=== PATIENT | female | born 2000 | race Caucasian/White ===

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

== ENCOUNTER → 2020-02-19 | Outpatient (CLI) | payer MEDICAID, SELFPAY ==
[2020-02-19 18:28] LABS: Thyroid Stim Hormone (TSH) 2.47 uIU/mL (0.358-3.74)
== END | disposition home or self-care (01) ==
PROVIDERS: Referring Provider Obstetrics & Gynecology; Visit Provider Obstetrics & Gynecology
DX: N92.6 Irregular menstruation, unspecified (principal)
CPT/HCPCS: 84443

== ENCOUNTER → 2020-07-18 13:41 | Outpatient (CLI) | payer MEDICAID, SELFPAY ==
[2020-07-18 14:43] LABS: Hematocrit 40.6 % (37-47); Hemoglobin 13.4 g/dL (12.0-15.0)
[2020-07-18 15:18] LABS: Hemoglobin A1c 5.2 % (3.8-5.6)
[2020-07-18 15:38] LABS: HIV - WCH Non-Reactive (Nonreactive); Hepatitis B Surface Antigen Non-Reactive (Nonreactive); Hepatitis C Antibody Non-Reactive (Nonreactive)
[2020-07-24 04:30] LABS: Rapid Plasmin Reagin (RPR) NONREACTIVE (NONREACTIVE)
== END ==
PROVIDERS: Visit Provider Student in an Organized Health Care Education/Training Program
DX: Z11.3 Encounter for screening for infections with a predominantly sexual mode of transmission (principal)
CPT/HCPCS: 36415; 83036; 85014; 85018; 86592; 86703; 86803; 87340

== ENCOUNTER 2022-10-26 09:39 | Emergency (ER) | payer OTHER, SELFPAY ==
[2022-10-26 09:39] VITALS: BP 113/86; PULSE 85; RESP 16; TEMP 36.6; O2SAT 99; BMI 21.9
--- NOTE | 2022-10-26 09:56 | EKG12_ITS ---
Test Reason : CP Blood Pressure : / mmHG Vent. Rate : 073 BPM Atrial Rate : 073 BPM P-R Int : 178 ms QRS Dur : 080 ms QT Int : 408 ms P-R-T Axes : 049 057 027 degrees QTc Int : 449 ms Normal sinus rhythm Normal ECG Confirmed by MOIZ LEOS, AIDAN ([id number]), health editor JAELYN CURRY ([id number]) on 10/27/2022 10:48:02 AM Referred By: LI Confirmed By:AIDAN ROCKWELL MD
--- NOTE | 2022-10-26 09:57 | EX.ED.DYSGE1 ---
HPI History of Present Illness Chief Complaint: Dizziness Detail of Chief Complaint: Dizziness and near syncope Informant: patient Narrative Narrative: Patient presents the emergency department complaint of a episode this morning where she felt dizzy and felt she might pass out. Patient states that she was in the operating room standing for about an hour and a half. She was observing a hysterectomy. Patient states she normally does not get bothered by the site of blood. Patient states she has had intermittent episodes like this before but she states that her vision started to disappear and she lost hearing. Patient felt lightheaded and felt she was in a pass out. Patient was able to take off her surgical gown and gloves and sit down. There was no loss of consciousness. She denies chest pain. She denies shortness of breath. She denies recent illness. Patient states that she has history of irregular periods and was 2 weeks late on her last period but took a home test that was negative. She denies abdominal pain. She denies chest pain or palpitations. Prior similar symptoms: Yes [facility] Medical History (Updated 10/26/22 @ 10:[address] Ryland Bloom, ) Near syncope Home Medications biotin 1 mg capsule 1 mg PO DAILY 02/20/19 [History Last Taken Unknown] ondansetron 4 mg disintegrating tablet 4 mg PO Q6H PRN PRN Nausea #20 tabs 02/20/19 [Rx Last Taken Unknown] Allergy/AdvReac Type Severity Reaction Status Date / Time No Known Allergies Allergy Verified 10/26/22 09:42 Social History Smoking Status: Current every day smoker tobacco type: cigarettes ROS ROS ED ROS Narrative Dizziness, near syncope Review of Systems ROS Unobtainable: other Constitutional Constitutional ED: Reports lethargy; Denies chills, fever(s), sweats or weight loss Eyes Eyes: Denies blurry vision, change in vision or diplopia ENT ENT ED: Reports other Details: Change in vision, hearing loss ; Denies rhinorrhea or sore throat Cardiovascular Cardiovascular: Denies chest pain, orthopnea or racing heartbeat Respiratory/Chest Respiratory/Chest: Denies cough, dyspnea, dyspnea on exertion, orthopnea or sputum Gastrointestinal Gastrointestinal: Denies abdominal pain, diarrhea, nausea or vomiting Genitourinary Genitourinary ED: Denies dysuria, hematuria or urinary frequency Musculoskeletal Musculoskeletal: Denies arthralgias, back pain, myalgias or neck pain Integumentary Denies abscess, Abrasions or rash Neurologic Neurologic: Denies headache(s) or weakness Psychiatric Psychiatric: Denies anxiety, depression or suicidal thoughts Endocrine Endocrinology: Denies polydipsia, polyphagia or polyuria Hematologic/Lymphatic Hematologic/Lymphatic: Denies easy bleeding, easy bruising or lymphadenopathy Allergic/Immunologic Allergic/Immunologic ED: Denies mouth swelling, tongue swelling or urticaria EXAM Physical Exam Const Vital Signs: 10/26/22 09:39 10/26/22 10:47 10/26/22 10:52 Temperature 98 F Temperature Source Temporal Pulse Rate 85 Pulse Rate [Lying] 65 Pulse Rate [Sitting (for 1 minute prior to obtaining)] 75 Pulse Rate [Standing (for 1 minute prior to obtaining)] 82 Respiratory Rate 16 Respiratory Effort Normal Non-Labored Respiratory Pattern Normal Blood Pressure 113/86 H Blood Pressure [Lying] 109/65 Blood Pressure [Sitting (for 1 minute prior to obtaining)] 104/77 Blood Pressure [Standing (for 1 minute prior to obtaining)] 103/68 Blood Pressure Mean 95 Blood Pressure Mean [Lying] 79 Blood Pressure Mean [Sitting (for 1 minute prior to obtaining)] 86 Blood Pressure Mean [Standing (for 1 minute prior to obtaining)] 79 Pulse Ox 99 Oxygen Delivery Method Room Air Positive well nourished and well developed General Appearance ED: well developed and NAD HEENT Reports TM's clear and moist mucous membranes normocephalic and atraumatic; Negative for trauma or tenderness Tympanic Membrane ED: Yes TM's clear Eyes PERRL and EOMs intact bilaterally General Eye ED: Negative for pale conjunctiva or scleral icterus Neck no lymphadenopathy, supple and no JVD General: Negative for tenderness Chest Wall inspection of chest normal and palpation of chest normal Chest: Negative for tenderness Resp normal respiratory effort and clear to auscultation bilaterally Effort and Inspection: Negative for respiratory distress or pain with movement Auscultation: Negative for rhonchi, wheezes or diminished lung sounds Cardio regular rate, regular rhythm, S1 normal heart sound, S2 normal heart sound and no murmurs Peripheral Pulses: pulses 2+ throughout GI normal to inspection, nondistended, normoactive bowel sounds, soft to palpation, non-tender, non-distended and no masses Back/Spine no CVA tenderness and no thoracic nor lumbar tenderness Extremity normal to inspection General Extremety ED: Negative for edema General Extremity: Negative for edema Neuro oriented x3, CN's II-XII intact bilaterally, no sensory deficits noted and gait normal Sensorium / Orientation: awake, alert, oriented to person, oriented to place and oriented to time Motor Exam: strength 5/5 throughout and strength abnormal Psych mental status grossly normal Skin no rashes or lesions noted and no wounds MDM MDM MDM Narrative Medical decision making narrative: IV line established on arrival. Patient had orthostatic vital signs that were negative. Lab work-up was normal. EKG obtained was unremarkable. At this point I suspect likely vasovagal type near syncope as etiology of her symptoms. She has had these episodes in the past. Patient advised that at symptom onset she should lay down. Patient will be given referral to primary care physician for follow-up. Lab Data Attestation: I reviewed the patient's lab results. Labs: Laboratory Results - last 24 hr 10/26/22 10/26/22 10/26/22 10:10 10:10 10:10 WBC 8.5 RBC 4.61 Hgb 13.1 Hct 40.8 MCV 88.5 MCH 28.4 MCHC 32.1 RDW Std Deviation 41.7 RDW Coeff of Jodi 12.8 Plt Count 226 MPV 10.9 Immature Gran % (Auto) 0.500 Neut % (Auto) 75.0 H Lymph % (Auto) 19.2 [place]oval % (Auto) 4.4 Eos % (Auto) 0.8 Baso % (Auto) 0.1 Absolute Neuts (auto) 6.4 Absolute Lymphs (auto) 1.64 Nucleated RBC % 0 Sodium 140 Potassium 3.7 Chloride 104 Carbon Dioxide 27.0 Anion Gap 9 BUN 22 H Creatinine 0.89 Estim Creat Clear Calc 96.42 Est GFR (MDRD) Af Amer 102 Est GFR (MDRD) Non-Af 84 BUN/Creatinine Ratio 24.7 H Glucose 115 H Calcium 9.0 Serum , Qual NEGATIVE EKG Initial EKG: Attestation: I personally reviewed and interpreted this EKG as follows: Comments: Sinus rhythm with a rate of 73 bpm with no acute ST segment changes Discharge Plan Triage Chief Complaint: Dizziness ED Provider: Ryland Bloom Dx/Rx/DC Orders Clinical Impression: Vasovagal near syncope Instructions: ED Near-Fainting- Vagal Reaction Prescriptions: No Action ondansetron 4 MG tablet 4 mg PO Q6H PRN PRN (Reason: Nausea) Qty: 20 0RF biotin 1 MG capsule 1 mg PO DAILY Primary Care Provider: Care Physician,No Primary Referrals: Demarcus Quispe MD [Med Staff - Active Staff] - As Needed Care Physician,No Primary [Primary Care Provider] - Disposition Disposition: Home, Self Care
--- NOTE | 2022-10-26 10:01 | NURSING ---
NO OLD EKGS
[2022-10-26 10:27] LABS: Absolute Lymphocyte Count 1.64 X10^3/uL (0.83-4.51); Absolute Neutrophil Count 6.4 X10^3/uL (2.0-7.7); Basophil# 0.01 X10^3/uL; Basophil% 0.1 % (0-1); Eosinophil# 0.07 X10^3/uL; Eosinophils% 0.8 % (0-5); Hematocrit 40.8 % (37-47); Hemoglobin 13.1 g/dL (12.0-15.0); Lymphocyte # 1.64 X10^3/ul (0.83-4.51); Lymphocyte % 19.2 % (19-41); Mean Corp Hgb Conc 32.1 g/dL (32-36); Mean Corpuscular Hgb 28.4 pg (27.0-32.0); Mean Corpuscular Volume 88.5 fL (81-99); Mean Platelet Vol. 10.9 fl (6.2-12.0); Monocyte# 0.38 X10^3/uL; Monocyte% 4.4 % (0-10); NRBC Flagged by Analyzer 0 % (0-5); Platelet Count 226 K/mm3 (150-450); RBC Distribution Width CV 12.8 % (11.6-14.6); RBC Distribution Width SD 41.7 fl (35.1-43.9); Red Blood Count 4.61 M/mm3 (4.2-5.4); White Blood Count 8.5 K/mm3 (4.4-11.0)
[2022-10-26 10:34] LABS: Anion Gap 9 (5-15); BUN 22 mg/dL (7-18); BUN/Creat Ratio 24.7 RATIO (10-20); Chloride 104 mmol/L (98-107); Creatinine, Serum 0.89 mg/dL (0.55-1.02); EST Glomerular Filtration Rate 84 mL/min (>60); Est Glom Filt Rate - Afr Amer 102 mL/min (>60); Estimated Creatinine Clearance 96.42 ml/min; Glucose 115 mg/dL (74-106); Potassium 3.7 mmol/L (3.5-5.1); Sodium Level 140 mmol/L (136-145)
[2022-10-26 10:47] VITALS: BP 103/68; BP 104/77; BP 109/65; PULSE 65; PULSE 75; PULSE 82
[2022-10-26 10:47] LABS: Internal QC Validated? YES +Cl - CLEAR BKGD; Pregnancy, Serum, hCG Quali. NEGATIVE Negative
== END 2022-10-26 11:05 | disposition home or self-care (01) ==
LOC: ED 11:03
PROVIDERS: Emergency Provider Emergency Medicine; Visit Provider Emergency Medicine
DX: R55 Syncope and collapse (principal); F17.210 Nicotine dependence, cigarettes, uncomplicated
CPT/HCPCS: 80048; 84703; 85025; 93005; 99285

== ENCOUNTER 2023-01-05 07:08 | Emergency (ER) | payer OTHER, MEDICAID, SELFPAY ==
[2023-01-05 07:09] VITALS: BP 113/75; PULSE 80; RESP 14; TEMP 36.8; O2SAT 99; BMI 22.0
[2023-01-05 07:57] LABS: Color, Urine Yellow (Yellow); Glucose, Dipstick Normal (Normal); Ketone-Dipstick Negative (Negative); Leukocyte Esterase-Dipstick 25 /ul (Negative); Nitrite-Dipstick Negative (Negative); Occult Blood-Urine 10 /ul (Negative); Protein-Dipstick 15 mg/dl (Negative); Urine Bilirubin Dipstick Negative (Negative); Urine Clarity Sl. Cloudy (Clear); Urine Urobilinogen Normal (Normal)
[2023-01-05 08:04] LABS: Bacteria 1+ /hpf (None Seen); Mucous, Urine 1+ /hpf (<or=2+); Red Blood Cells-Urine 0-5 SEEN /hpf (0-5); Squamous Epithelial Cells - UA 5-10 SEEN /hpf (5-10); White Blood Cells 0-5 SEEN /hpf (0-5)
[2023-01-05 08:05] LABS: Internal QC Validated? YES +Cl - CLEAR BKGD; Pregnancy, Urine Negative Negative
--- NOTE | 2023-01-05 08:10 | CT_ITS ---
STUDY: CT ABDOMEN AND PELVIS WITH CONTRAST REASON FOR EXAM: Female, 22 years old. Two-week history of left lower quadrant pain. RADIATION DOSAGE (If Supplied By Facility): CTDIvol = ( 11.53 ) mGy, DLP = ( 347.56 ) mGycm TECHNIQUE: Transaxial images were obtained from the dome of the diaphragm to the symphysis pubis without oral contrast. IV 100mL Isovue-300 was administered. Sagittal and coronal images were reconstructed. Individualized dose optimization techniques were used for this CT. COMPARISON: None. FINDINGS: The visualized lung bases are unremarkable. The visualized portions of the heart are within normal limits. Normal liver. Normal gallbladder and extrahepatic biliary system. Normal spleen. Normal pancreas. Normal bilateral adrenal glands. Normal right kidney. Normal left kidney. Normal visualized stomach. Normal small intestine. Normal colon. The appendix is visualized and appears normal. Normal abdominal aorta. Normal inferior vena cava. Normal retroperitoneum. Normal urinary bladder. Small follicles are seen in both ovaries. Normal abdominal wall. Normal osseous structures. CT/Abdomen/Pelvis W IV Cont ONLY IMPRESSION: Normal enhanced CT of the abdomen and pelvis. Electronically Signed: Philippe Lee MD at 9:54 EST ,
--- NOTE | 2023-01-05 08:32 | CM.ED ---
YUE Note Referral Source: Case Find Referral Reason: No Primary Care Physician (PCP) SW reviewed chart and noted that patient has no PCP. SW provided patient with list of [facility] and [facility] Physician List for reference. SW also provided patient with [facility] resource list as per face sheet patient is homeless. No other issues or concerns voiced at this time. SW remains available for any additional needs. Plan: Provided patient with PCP information Leyla AJ
[2023-01-05] MEDS: Ketorolac 15 MG/ML Vial IV (08:40)
[2023-01-05 08:44] LABS: Absolute Lymphocyte Count 1.72 X10^3/uL (0.83-4.51); Absolute Neutrophil Count 5.5 X10^3/uL (2.0-7.7); Basophil# 0.02 X10^3/uL; Basophil% 0.3 % (0-1); Eosinophils% 1.3 % (0-5); Hematocrit 40.1 % (37-47); Hemoglobin 13.5 g/dL (12.0-15.0); Lymphocyte # 1.72 X10^3/ul (0.83-4.51); Lymphocyte % 22.3 % (19-41); Mean Corp Hgb Conc 33.7 g/dL (32-36); Mean Corpuscular Hgb 30.1 pg (27.0-32.0); Mean Corpuscular Volume 89.5 fL (81-99); Monocyte# 0.38 X10^3/uL; Monocyte% 4.9 % (0-10); NRBC Flagged by Analyzer 0 % (0-5); Neutrophil # 5.49 X10^3/uL (2.7-7.7); Neutrophil % 71.1 % (47-70); Platelet Count 233 K/mm3 (150-450); RBC Distribution Width CV 13.3 % (11.6-14.6); RBC Distribution Width SD 43.8 fl (35.1-43.9); Red Blood Count 4.48 M/mm3 (4.2-5.4); White Blood Count 7.7 K/mm3 (4.4-11.0)
[2023-01-05 09:19] LABS: ALB/GLOB Ratio 1.1 RATIO (0.9-2.4); AST(SGOT) 17 U/L (15-37); Alanine Aminotransfer ALT/SGPT 19 U/L (13-56); Albumin, Serum 4.2 g/dL (3.2-5.0); Alkaline Phosphatase 75 U/L (45-117); Anion Gap 7 (5-15); BUN 12 mg/dL (7-18); BUN/Creat Ratio 16.9 RATIO (10-20); Calcium,Total 9.3 mg/dL (8.5-10.1); Chloride 108 mmol/L (98-107); Creatinine, Serum 0.71 mg/dL (0.55-1.02); EST Glomerular Filtration Rate 108 mL/min (>60); Est Glom Filt Rate - Afr Amer 131 mL/min (>60); Estimated Creatinine Clearance 120.86 ml/min; Globulin 3.7 g/dL (2.2-4.2); Glucose 92 mg/dL (74-106); Lipase 93 U/L (73-393); Protein, Total 7.9 g/dL (6.4-8.2); Sodium Level 142 mmol/L (136-145)
--- NOTE | 2023-01-05 10:40 | EDS_ITS ---
HPI HPI - GI History of Present Illness Chief Complaint: Abd Pain Informant: patient Narrative Narrative: Patient is a 22-year-old female that denies any significant past medical history presenting with left upper quadrant abdominal pain. Is been present for the past 2 weeks. She states it is constant but waxes and wanes in nature. She was seen in [facility] on 12/30 for the same plan. They thought at that time maybe was menstrual cramping. She was given a dose of Toradol which did seem to help the pain. Her last menstrual period was 12/29. She has had some associated nausea in the day before she went to the urgent care she did have 1 episode of vomiting. She says her bowel moods have been normal. She notes that she has a similar episode about a year and 1/2 to 2 years ago but it self resolved and she never had it evaluated. She states that she does get some bloating and discomfort worse after she eats or drinks something. She is never seen GI or had an endoscopy. She denies any other complaints at this time. Denies any urinary symptoms. Denies any abnormal vaginal bleeding or discharge. Notes she has been having some hiccups as well. [facility] Medical History Acute maxillary sinusitis, unspecified Contact with and (suspected) exposure to other viral communicable diseases Near syncope Home Medications famotidine 20 mg tablet 20 mg PO BID #28 TABLETS 01/05/23 [Rx Last Taken Unknown] polyethylene glycol 3350 17 gram/dose oral powder (Miralax) 17 g PO DAILY PRN constipation #119 grams 01/05/23 [Rx Last Taken Unknown] Allergy/AdvReac Type Severity Reaction Status Date / Time No Known Allergies Allergy Verified 01/05/23 07:09 Social History Smoking Status: Current every day smoker tobacco type: cigarettes ROS ROS ED Constitutional Constitutional ED: Denies chills or fever(s) ENT ENT ED: Denies sore throat Cardiovascular Cardiovascular: Denies chest pain Respiratory/Chest Respiratory/Chest: Denies cough or dyspnea Gastrointestinal Gastrointestinal: Reports abdominal pain, nausea and vomiting; Denies constipation or diarrhea Genitourinary Genitourinary ED: Denies dysuria, hematuria or urinary frequency Musculoskeletal Musculoskeletal: Denies arthralgias or myalgias Integumentary Denies rash Neurologic Neurologic: Denies headache(s) Hematologic/Lymphatic Hematologic/Lymphatic: Denies easy bleeding or easy bruising EXAM Physical Exam Const Vital Signs: 01/05/23 07:09 01/05/23 11:02 Temperature 98.2 F Temperature Source Temporal Pulse Rate 80 52 L Respiratory Rate 14 16 Blood Pressure 113/75 126/77 H Blood Pressure Mean 87 Pulse Ox 99 98 Oxygen Delivery Method Room Air Positive well nourished and well developed General Appearance ED: well developed and NAD HEENT Reports moist mucous membranes normocephalic and atraumatic Eyes PERRL Neck supple and no JVD Resp normal respiratory effort and clear to auscultation bilaterally Cardio regular rate and regular rhythm GI non-distended GI Narrative: mild LUQ TTP Auscultation: normoactive bowel sounds Palpation: soft Back/Spine no CVA tenderness Extremity full ROM General Extremety ED: Negative for edema or tenderness General Extremity: Negative for edema Neuro moves all extremities Sensorium / Orientation: alert, oriented to person, oriented to place and oriented to time Skin no wounds Rashes: no rashes MDM MDM MDM Narrative Medical decision making narrative: Patient is evaluated for 2 weeks of left upper quadrant abdominal pain. She previously been seen [facility] was had no further work-up. Vital signs are normal. Exam is benign. She does have some mild tenderness in her epigastric/left upper quadrant area. Differential includes gastritis, constipation, renal colic, pyelonephritis and colitis. Patient is afebrile and has no leukocytosis or other signs of fever so I have a lower suspicion for acute intra-abdominal infection. CBC and CMP largely unremarkable. Urinalysis consistent with contamination and not consistent with infection. Urine is negative. Patient is given dose of Toradol does have improvement on repeat evaluation. Clinically she does not appear dehydrated. I do not think she requires IV fluids at this time. CT does not show any acute intra-abdominal pathology to explain her symptomatology. Patient counseled its possible that she could have some gas pains that she does have some increased stool/gas in her splenic flexure where she could have some type of peptic ulcer disease that we are not seen on imaging. There is no signs of perforation or more serious sequelae of that. Patient will be started on MiraLAX and Pepcid. Counseled take Tylenol as needed for pain. Given referral for GI. At this time I do not think there is an acute surgical emergency requiring urgent surgical/GI consults or admission to the hospital. Patient is comfortable with this. She is given return precautions. She verbalizes agreement understand this plan. Discharged home in stable condition. Lab Data Attestation: I reviewed the patient's lab results. Labs: Laboratory Results - last 24 hr 01/05/23 01/05/23 01/05/23 07:31 08:37 08:37 WBC 7.7 RBC 4.48 Hgb 13.5 Hct 40.1 MCV 89.5 MCH 30.1 MCHC 33.7 RDW Std Deviation 43.8 RDW Coeff of Jodi 13.3 Plt Count 233 MPV 11.0 Immature Gran % (Auto) 0.100 Neut % (Auto) 71.1 H Lymph % (Auto) 22.3 Jay % (Auto) 4.9 Eos % (Auto) 1.3 Baso % (Auto) 0.3 Absolute Neuts (auto) 5.5 Absolute Lymphs (auto) 1.72 Nucleated RBC % 0 Sodium 142 Potassium 4.0 Chloride 108 H Carbon Dioxide 27.0 Anion Gap 7 BUN 12 Creatinine 0.71 Estim Creat Clear Calc 120.86 Est GFR (MDRD) Af Amer 131 Est GFR (MDRD) Non-Af 108 BUN/Creatinine Ratio 16.9 Glucose 92 Calcium 9.3 Total Bilirubin 0.70 AST 17 ALT 19 Alkaline Phosphatase 75 Total Protein 7.9 Albumin 4.2 Globulin 3.7 Albumin/Globulin Ratio 1.1 Lipase 93 Urine Color Yellow Urine Clarity Sl. Cloudy Urine pH 6.0 Ur Specific [place] 1.020 Urine Protein 15 H Urine Glucose (UA) Normal Urine Ketones Negative Urine Occult Blood 10 H Urine Nitrite Negative Urine Bilirubin Negative Urine Urobilinogen Normal Ur Leukocyte Esterase 25 H Urine RBC 0-5 SEEN Urine WBC 0-5 SEEN Ur Squamous Epith Cells 5-10 SEEN Urine Bacteria 1+ Urine Mucus 1+ Urine Test Negative Radiography Diagnostic Testing: Clinical Impression(s) from Imaging Studies Abdomen/Pelvis CT 01/05/23 08:10 IMPRESSION: Normal enhanced CT of the abdomen and pelvis. Electronically Signed: Philippe Lee MD at 9:54 EST , Discharge Plan Triage Chief Complaint: Abd Pain Other Complaint: Constipation ED Provider: Corry Gutierres Dx/Rx/DC Orders Clinical Impression: Abdominal pain in female Instructions: ED Abdominal Pain Unkn Cause Fem Prescriptions: New polyethylene glycol 3350 [Miralax] 17 gram/dose powder 17 g PO DAILY PRN (Reason: constipation) Qty: 119 0RF famotidine 20 mg tablet 20 mg PO BID Qty: 28 0RF Primary Care Provider: Care Physician,No Primary Referrals: Friend,Chung, DO [Med Staff - Active Staff] - Care Physician,No Primary [Primary Care Provider] - Disposition Disposition: Home, Self Care Discharge Date/Time: 01/05/23 11:03
[2023-01-05 11:02] VITALS: BP 126/77; PULSE 52; RESP 16; O2SAT 98
== END 2023-01-05 11:03 | disposition home or self-care (01) ==
PROVIDERS: Emergency Provider Emergency Medicine; Visit Provider Emergency Medicine
DX: R10.12 Left upper quadrant pain (principal); F17.210 Nicotine dependence, cigarettes, uncomplicated
CPT/HCPCS: 74177; 80053; 81001; 81025; 83690; 85025; 96374; 99283; Q9967; A4216